=== PATIENT | male | born 1965 | race Caucasian/White ===

== ENCOUNTER → 2023-02-20 14:48 | Outpatient (CLI) | payer OTHER, MEDICAID, SELFPAY | PROVIDERS: PCP Family Medicine; Visit Provider Family Medicine | DX: M54.9 Dorsalgia, unspecified (principal); R39.89 Other symptoms and signs involving the genitourinary system | CPT/HCPCS: 81002; 87086 ==

== ENCOUNTER → 2023-03-05 14:57 | Outpatient (CLI) | payer OTHER, MEDICAID, SELFPAY ==
--- NOTE | 2023-03-05 14:59 | DI.CT.S_ITS ---
PROCEDURE: CT KIDNEY URETER BLADDER (KUB) INDICATIONS: Suspected Kidney Stones TECHNIQUE: Axial sections were acquired from the lung bases to the pubic symphysis. Coronal and sagittal reformats were performed. For radiation dose reduction, the following was used: automated exposure control, adjustment of mA and/or kV according to patient size. COMPARISON: [facility], CT, ABDOMEN/PELVIS WITH CONTRAST, 03/15/2017, 20:03. FINDINGS: Image quality: Excellent. Lung bases: Unremarkable. Heart: No significant findings. URINARY: Right Kidney: No stones or hydronephrosis. Right Ureter: No hydroureter. Left Kidney: No stones or hydronephrosis. Left Ureter: No hydroureter. Bladder: Normal wall thickness. No stones. ABDOMEN: Liver: No contour-deforming solid mass. Gallbladder: Mildly contracted. No radiopaque gallstones or wall thickening. Biliary ducts: No biliary dilation. Pancreas: No ductal dilation. Spleen: Size is within normal limits. Adrenal Glands: No adrenal nodules. Stomach and Bowel: Mild bowel wall thickening in the descending and sigmoid colon may be related to underdistention versus a mild colitis. Normal appendix. Prominent stool is seen in the rectum. Peritoneum: No abnormal intraperitoneal fluid. No free air. Ventral Wall: No hernia. Abdominal Nodes: No enlarged retroperitoneal or mesenteric lymph nodes. Vessels: Aorta and inferior vena cava are normal in size. PELVIS: Pelvic Organs: Unremarkable. Pelvic Nodes: Unremarkable. Miscellaneous: Probable right herniorrhaphy clips. Small fat containing left inguinal hernia. Bones: Unremarkable. IMPRESSION: 1. No renal or ureteral calculus or hydronephrosis. 2. Mild bowel wall thickening in the descending and sigmoid colon may be related to underdistention versus a nonspecific mild colitis. Prominent rectal stool. 3. Fat containing left inguinal hernia. Approved by: Tyrone Astudillo M.D. on 03/05/2023 at 20:34
== END ==
PROVIDERS: PCP Family Medicine; Referring Provider Family Medicine; Visit Provider Family Medicine
DX: K40.90 Unilateral inguinal hernia, without obstruction or gangrene, not specified as recurrent (principal); M54.9 Dorsalgia, unspecified
CPT/HCPCS: 74176